=== PATIENT | female | born 1985 | race Caucasian/White ===

== ENCOUNTER 2017-11-16 19:49 | Emergency (ER) | payer OTHER, MEDICAID ==
[~2017-11-16] VITALS: Ht 180.3 cm; Wt 65.8 kg
[2017-11-16] MEDS ORDERED: SERTRALINE HCL50 MG PO (19:57)
[2017-11-16] MEDS ORDERED: BACTRIM DS TAB1 EACH PO (19:57)
[2017-11-16 20:52] LABS: URINE COLOR ORANGE
[2017-11-16 20:53] LABS: URINE CLARITY CLOUDY; URINE SPECIFIC GRAVITY 1.023 (1.005-1.030)
[2017-11-16] MEDS ORDERED: KEFLEX500 M1 PO (20:53)
[2017-11-16] MEDS ORDERED: PHENAZOPYRIDIN200 M2 PO (20:53)
[2017-11-16 20:58] LABS: ACETEST (KETONE CONFIRMATORY) Negative (Negative); ICTOTEST (BILI CONFIRMATORY) Negative (Negative); SSA (PROTEIN CONFIRMATORY) NEGATIVE (Negative); URINE REDUCING SUBSTANCE NEGATIVE (Negative)
[2017-11-16 20:59] VITALS: BP 95/60
[2017-11-16 20:59] LABS: MUCUS 4-6 Moderate strn/LPF (None Seen); SQUAMOUS 4-10 Moderate /LPF (0-3)
[2017-11-16 21:00] LABS: URINE RBC >20 Many /HPF (0-2); URINE WBC-REFLEX 6-15 Few /HPF (0-5)
[2017-11-16 21:01] LABS: BACTERIA-REFLEX 1-9 Few /HPF (None Seen); CASTS None Seen /LPF (None Seen); CRYSTALS None Seen /LPF (None Seen)
== END 2017-11-16 21:00 | disposition home or self-care (01) ==
LOC: M.ERS 19:49
PROVIDERS: Physician Assistant
DX: N39.0 Urinary tract infection, site not specified (principal); F17.200 Nicotine dependence, unspecified, uncomplicated; Z90.710 Acquired absence of both cervix and uterus